=== PATIENT | female | born 1980 | race Caucasian/White ===

== ENCOUNTER 2021-07-11 06:12 | Emergency (ER) | payer OTHER, SELFPAY ==
[2021-07-11 06:19] VITALS: BP 119/75; PULSE 91; RESP 16; TEMP 36.9; O2SAT 97
--- NOTE | 2021-07-11 06:39 | W.ED.GENAD ---
Discharge Plan Disposition Patient Disposition: HOME Condition: Good Discharge Details Clinical Impression: URI (upper respiratory infection), Pharyngitis Primary Care Provider: Anya,Local ED Provider: Wyatt Brooks Home Meds and New Rx's Prescriptions: New loratadine 10 mg capsule 10 mg PO DAILY Qty: 14 0RF azithromycin 250 mg tablet See Rx Instructions .ROUTE .COMPLEX Qty: 6 0RF Rx Instructions: For 250 mg dose pack: take 500 mg today (day 1), then 250 mg for 4 days (days 2-5) Continued ondansetron HCl 4 mg Tablet 4 mg PO Q6H PRN0RF levothyroxine 25 mcg Tablet 25 mcg PO DAILY 0RF escitalopram oxalate [Lexapro] 5 mg Tablet 5 mg PO DAILY 0RF sumatriptan-naproxen 85-500 mg Tablet 1 tab PO ONCE PRN0RF Rx Instructions: may repeat once in 2 hours; do not exceed 2 doses in 24 hours Discharge Instructions Instructions: Pharyngitis (ED), Upper Respiratory Infection (ED) Additional Instructions: At this time your strep test is negative. Your symptoms are likely from a virus. The Covid test is pending and you will be contacted with the results. Currently there is no evidence of pneumonia on your exam, however if you have continued or worsening of your symptoms over the neck 48 to 72 hours I would recommend starting the antibiotic as this may represent the evangelical of a bacterial bronchitis or early pneumonia. In the meantime please take the loratadine as directed to help with your congestion, and take 800 mg of ibuprofen every 6 hours. If you notice any worsening of your symptoms, or any new symptoms such as vomiting, diarrhea, fever, chills, shortness of breath, chest pain, numbness, weakness, or fainting , please return immediately to the emergency department for reevaluation. Please follow up with your primary care provider as soon as possible for reassessment and reevaluation. As always, it was a pleasure participating in your medical care today. Medical Decision Making This is a 40-year-old female with a past medical history of thyroid disease, who presents today for evaluation of a sore throat. Patient states that about a week ago she initially came down with congestion sore throat, it seemed to have resolved on its own and then came back again over the last 48 hours while she was traveling. She was tested for Covid last Tuesday, at her work and this was negative. She does admit to a cough but only when laying down from congestion dripping from the back of her throat. She admits to soreness in her throat, congestion in her nose, and pressure behind her ears. She denies any fever or chills. She does interact with children regularly and is concerned that she may have picked up a virus from them. She denies any severe fatigue, abdominal pain, or other complaints. No other modifying factors. Physical exam demonstrates mild erythema the posterior pharynx, mild tonsillar enlargement, no airway obstruction whatsoever. No tonsillar exudate. No meningeal signs. Tympanic membranes are eisenberg and pearly. Lungs are notably clear. Symptoms consistent with mild viral upper respiratory infection. Strep test negative. Will send send out Covid test. At this time recommend loratadine and ibuprofen at home as needed for congestion and sore throat. The patient symptoms persist over the next 48 to 72 hours and her cough worsens and she develops fever or chills then I would recommend starting antibiotic for potential bacterial bronchitis or pneumonia at that time however she shows no clinical evidence of this currently. Discussed red flags for which to return. I have extensively reviewed the treatment plan and discharge instructions with the patient. I have addressed all patient concerns at this time. The patient was made aware of what symptoms to monitor for that would warrant a return to the emergency department. Discussed the plan with the patient, they demonstrate verbal understanding and agreement with our assessment and plan at this time. The documentation in this chart was dictated using [employer] dictation software. Please excuse any dictation errors. HPI General Date/Time Provider Initiated Documentation: 07/11/21 06:13. HPI Narrative: This is a 40-year-old female with a past medical history of thyroid disease, who presents today for evaluation of a sore throat. Patient states that about a week ago she initially came down with congestion sore throat, it seemed to have resolved on its own and then came back again over the last 48 hours while she was traveling. She was tested for Covid last Tuesday, at her work and this was negative. She does admit to a cough but only when laying down from congestion dripping from the back of her throat. She admits to soreness in her throat, congestion in her nose, and pressure behind her ears. She denies any fever or chills. She does interact with children regularly and is concerned that she may have picked up a virus from them. She denies any severe fatigue, abdominal pain, or other complaints. No other modifying factors. Related Data Home Medications Medication Instructions Recorded Confirmed azithromycin 250 mg tablet See Rx Instructions .ROUTE 07/11/21 .COMPLEX #6 tab escitalopram oxalate 5 mg tablet 5 mg PO DAILY 07/11/21 07/11/21 (Lexapro) levothyroxine 25 mcg tablet 25 mcg PO DAILY 07/11/21 07/11/21 loratadine 10 mg capsule 10 mg PO DAILY #14 cap 07/11/21 ondansetron HCl 4 mg tablet 4 mg PO Q6H PRN 07/11/21 07/11/21 sumatriptan 85 mg-naproxen 500 mg 1 tab PO ONCE PRN 07/11/21 07/11/21 tablet Previous Rx's Medication Instructions Recorded azithromycin 250 mg tablet See Rx Instructions .ROUTE 07/11/21 .COMPLEX #6 tab loratadine 10 mg capsule 10 mg PO DAILY #14 cap 07/11/21 Allergies Allergy/AdvReac Type Severity Reaction Status Date / Time amoxicillin Allergy Intermediate Skin Rash Unverified 07/11/21 06:33 Penicillins Allergy Intermediate Skin Rash Unverified 07/11/21 06:33 General Stated Complaint: Sorethroat RONEN: 4 Review of Systems All systems reviewed & are unremarkable except as noted in HPI and below PFSH All Active Problems URI (upper respiratory infection) (Acute) Pharyngitis (Acute) Social History Smoking/Tobacco Use Status: Never Smoking risk assessment performed?: Yes Alcohol Intake: current Alcohol Intake frequency: a few times a week Alcohol type: beer, wine, hard liquor and other Drug use: Occasionally Substance use type: marijuana Details: Patient uses edibles. Do you feel safe at home: Yes Do you feel safe in your relationship?: Yes Exam Narrative Exam Narrative: 1.Const: Well-nourished, Well-developed, appearing stated age 2.Eyes: PERRL, no conjunctival injection, and symmetrical lids. 3.ENT: Atraumatic external nose and ears. Moist MM. Neck: Symmetric, trachea midline, No thyromegaly. Mild erythema of the posterior oropharynx. Minimal tonsillar enlargement. No tonsillar exudate. No peritonsillar mass. No uvular deviation. Patient demonstrates good movement of cervical neck. There is no nuchal rigidity, no nuchal tenderness. Patient is able to flex the neck without any difficulty or significant pain. Negative Kernig's and Brudzinski sign. Tympanic membranes are eisenberg and pearly. No effusion. 4.CVS: +S1/S2, No murmurs or gallops. Peripheral pulses 2+ and equal in all extremities. Brisk capillary refill in all extremities. 5.RESP: Unlabored respiratory effort. Clear to auscultation bilaterally. No wheezes rales or rhonchi 6.GI: Soft, Nontender/Nondistended, No hepatosplenomegaly. No guarding or rebound. 7.MSK: Normocephalic/Atraumatic, Extremities w/o deformity or ttp No cyanosis or clubbing, Normal movement of all extremities 8.Skin: Warm, Dry. No rashes or lesions. 9.Neuro: body specialist II-XII grossly intact. Sensation grossly intact, no focal neurologic deficits. 10.Psych: (AAO) x3. Appropriate mood and affect Course Vital Signs Vital signs: Vital Signs Temperature 36.9 C 07/11/21 06:19 Pulse 91 H 07/11/21 06:19 Respiratory Rate 16 07/11/21 06:19 Blood Pressure 119/75 07/11/21 06:19 Pulse Oximetry 97 07/11/21 06:19 Temperature 36.9 C 07/11/21 06:19 Temperature Source Oral 07/11/21 06:19 Pulse 91 H 07/11/21 06:19 Respiratory Rate 16 07/11/21 06:19 Respiratory Effort Non-Labored 07/11/21 06:21 Blood Pressure 119/75 07/11/21 06:19 Blood Pressure Position Sitting 07/11/21 06:19 Pulse Oximetry 97 07/11/21 06:19 Oxygen Delivery Method Room Air 07/11/21 06:19 Oxygen Flow Rate 0 07/11/21 06:19 Pain Level 0 07/11/21 06:19 PAWSS Have you Been Recently Intoxicated or Drunk Within the Last 30 days?: No Have you Ever Experienced Previous Episodes of Alcohol Withdrawal?: No Have you ever Experienced Withdrawal Seizures?: No Have you ever Experienced Delirium Tremens(DT)s?: No Have you ever undergone Alcohol Rehabilitation Treatment (i.e, inpt ot outpatient treatment programs)?: No Have you ever Experienced Blackouts?: No Have you ever Combined Alcohol with other Downers within the last 90 days?: No Have you ever Combined Alcohol with any other Substance of Abuse during the last 90 days?: No Positive Blood Alcohol level on Presentation? [PCS.BAL]: No Evidence of Increased Autonomic Activity (i.e. HR>120, tremor, sweating, agitation, nausea)?: No Result: 0
[2021-07-11] MEDS: Loratidine 10 MG TAB PO (06:49)
[2021-07-11 06:55] VITALS: BP 119/75; PULSE 91; RESP 16; TEMP 36.9; O2SAT 97
[2021-07-12 11:12] LABS: COVID-19 RT-PCR UVMMC Result Negative (Negative)
== END 2021-07-11 06:52 | disposition home or self-care (01) ==
PROVIDERS: Emergency Provider Student in an Organized Health Care Education/Training Program
DX: J06.9 Acute upper respiratory infection, unspecified (principal); J02.9 Acute pharyngitis, unspecified
CPT/HCPCS: 87880; 99283; U0003; 87081